=== PATIENT | male | born 1965 | race American Indian/Alaskan Native ===

== ENCOUNTER 2017-04-05 13:52 | Emergency (ER) | payer OTHER ==
[2017-04-05 13:53] VITALS: BMI 23.5
[2017-04-05 14:10] VITALS: BP 112/75; PULSE 79; RESP 16; TEMP 98.7; O2SAT 100
[2017-04-05] MEDS ORDERED: Oxycodone/Acetaminophen 5/325 mg Tab PO STA (14:22)
--- NOTE | 2017-04-05 14:26 | ED PDOC ---
Arrival/HPI - General Chief Complaint: Lower Extremity Problem/Injury Time Seen by Provider: 04/05/17 13:55 Historian: Patient - History of Present Illness Narrative History of Present Illness (Text): 04/05/17 14:25 51 y/o male, no significant pmh, nkda, c/o rt. calf pain x 2 months. Aching pain, aggravated by walking, no skin discoloration but admits rt. calf is skinnier recently, no numbness or tingling, no back pain, no dizziness, no other medical or psychological complaints. Past Medical History - Provider Review Nursing Documentation Reviewed: Yes - Past History Past History: No Previous - Infectious Disease Hx of Infectious Diseases: None - Tetanus Immunization Tetanus Immunization: Unknown - Past Medical History Past Medical History: No Previous - Cardiac Hx Cardiac Disorders: Yes Hx Hypertension: Yes - Pulmonary Hx Respiratory Disorders: Yes (SMOKES 1/2 PPD) - Endocrine/Metabolic Hx Endocrine Disorders: (borderline) - Musculoskeletal/Rheumatological Hx Musculoskeletal Disorders: Yes (CERVICAL RADICULOPATHY) Hx Falls: No - Psychiatric Hx Psychophysiologic Disorder: No Hx Substance Use: Yes (occassionally) - Past Surgical History Past Surgical History: No Previous - Anesthesia Hx Anesthesia: No Hx Anesthesia Reactions: No Hx Malignant Hyperthermia: No - Suicidal Assessment Feels Threatened In Home Enviroment: No Family/Social History - Physician Review Nursing Documentation Reviewed: Yes Family/Social History: Unknown Family HX Smoking Status: Heavy Smoker > 10 Cigarettes Daily Hx Alcohol Use: Yes Frequency of alcohol use: Socially Hx Substance Use: Yes (occassionally) Substance used: marijuana, cocaine (when younger) Hx Substance Use Treatment: No Allergies/Home Meds Allergies/Adverse Reactions: Allergies No Known Allergies Allergy (Verified 04/05/17 14:09) Review of Systems - Review of Systems Constitutional: absent: Fatigue, Fevers Eyes: absent: Vision Changes ENT: absent: Hearing Changes Respiratory: absent: SOB, Cough Cardiovascular: absent: Chest Pain Gastrointestinal: absent: Abdominal Pain, Nausea, Vomiting Musculoskeletal: Myalgias. absent: Arthralgias, Back Pain Skin: absent: Rash, Pruritis Physical Exam Vital Signs Temp Pulse Resp BP Pulse Ox 04/05/17 14:09 98.7 F 79 16 112/75 100 Temperature: Afebrile Blood Pressure: Normal Pulse: Regular Respiratory Rate: Normal Appearance: Positive for: Well-Appearing, Non-Toxic, Comfortable Pain Distress: None Mental Status: Positive for: Alert and Oriented X 3 - Systems Exam Head: Present: Atraumatic, Normocephalic Pupils: Present: PERRL, Sluggish Extroacular Muscles: Present: EOMI Conjunctiva: Present: Normal Mouth: Present: Moist Mucous Membranes Neck: Present: Normal Range of Motion Respiratory/Chest: Present: Clear to Auscultation, Good Air Exchange. No: Respiratory Distress, Accessory Muscle Use Cardiovascular: Present: Regular Rate and Rhythm, Normal S1, S2, Other (no pedal edema). No: Murmurs Abdomen: Present: Normal Bowel Sounds. No: Tenderness, Distention, Peritoneal Signs Back: Present: Normal Inspection. No: CVA Tenderness, Midline Tenderness, Paraspinal Tenderness, Pain with Leg Raise Upper Extremity: Present: Normal Inspection. No: Cyanosis, Edema Lower Extremity: Present: Normal Inspection, Other (Rt. lower extremity: +ttp on the middle to distal gastronemius and posterior achilles tendon region, + naomy and negative gorman signs, no skin discoloration, there is atrophy of the rt. calf compared to the left calf, +DPPT pulses, capillary refill< 2 seconds, no varicose vein, no cellulitis or streaking, no ulcers. ). No: Edema Neurological: Present: GCS=15, Speech Normal, Motor Func Grossly Intact, Gait Normal, Memory Normal Skin: Present: Warm, Dry, Normal Color. No: Rashes Psychiatric: Present: Alert, Oriented x 3, Normal Insight, Normal Concentration Medical Decision Making ED Course and Treatment: 04/05/17 14:29 -labs -RLE venuous doppler -Motrin and percocet 04/05/17 15:40 -I clinically concerning about the partial achilles tendon tear/rupture, will place the patient on the posterior splint. -RLE Venuous doppler: as preliminary report, no acute DVT -labs are non-significant -Posterior splint applied by me which he will need orthopedic follow up with MRI of the rt. lower extremity, pt. verbally expressed understanding. -Discharge home with naproxen, posterior splint, crutches, non-weight bearing, follow up with your own pmd and orthopedic for follow up plus MRI of the rt. lower extremity, return to the ER for any new or worsening signs or symptoms. - Lab Interpretations Lab Results: 04/05/17 14:25 04/05/17 14:25 Lab Results 04/05/17 14:25: Sodium 139, Potassium 3.8, Chloride 103, Carbon Dioxide 28, Anion Gap 12, BUN 11, Creatinine 1.0, Est GFR ( Amer) > 60, Est GFR (Non- Af Amer) > 60, Random Glucose 85, Calcium 9.1, Total Bilirubin 0.3, AST 27, ALT 31, Alkaline Phosphatase 90, Total Creatine Kinase 470 H, CK-MB (CK-2) 1.5, CK- MB (CK-2) % Cancelled, Total Protein 6.4, Albumin 4.0, Globulin 2.4, Albumin/ Globulin Ratio 1.7 04/05/17 14:25: WBC 4.6, RBC 5.36, Hgb 14.0, Hct 43.0, MCV 80.2, MCH 26.1, MCHC 32.6, RDW 15.1 H, Plt Count 213, MPV 9.8, Gran % 57.9, Lymph % (Auto) 33.2, [place] % (Auto) 7.2 H, Eos % (Auto) 1.5, Baso % (Auto) 0.2, Gran # 2.65, Lymph # 1.5, [place] # 0.3, Eos # 0.1, Baso # 0.01 I have reviewed the lab results: Yes Interpretation: No clinic. lab abnormalty - RAD Interpretation Radiology Orders: 04/05/17 14:22 DUPLEX LOWER EXTRM VEIN RIGHT [US] Stat RLE Venuous Doppler: as preliminary report, no acute DVT Hoop Maker Helper Machine: Radiologist - Medication Orders Current Medication Orders: Discontinued Medications Ibuprofen (Motrin Tab) 600 mg PO STAT STA Stop: 04/05/17 14:23 Last Admin: 04/05/17 14:31 Dose: 600 mg Oxycodone/Acetaminophen (Percocet 5/325 Mg Tab) 1 tab PO STAT STA Stop: 04/05/17 14:23 Last Admin: 04/05/17 14:31 Dose: 1 tab - PA / LOCAL FLATBED DRIVER / Resident Statement / has reviewed & agrees with the documentation as recorded. Disposition/Present on Arrival - Present on Arrival Any Indicators Present on Arrival: No History of DVT/PE: No History of Uncontrolled Diabetes: No Urinary Catheter: No History of Decub. Ulcer: No History Surgical Site Infection Following: None - Disposition Have Diagnosis and Disposition been Completed?: Yes Diagnosis: Atrophy of gastrocnemius muscle, Right calf pain Disposition: HOME/ ROUTINE Disposition Time: 15:42 Patient Plan: Discharge Condition: IMPROVED Additional Instructions: -Discharge home with naproxen, posterior splint, crutches, non-weight bearing, follow up with your own pmd and orthopedic for follow up plus MRI of the rt. lower extremity, return to the ER for any new or worsening signs or symptoms. Prescriptions: Naproxen 500 mg PO BID PRN #20 tab PRN Reason: Other Referrals: Katherine Villanueva MD [Staff Provider] - Follow up with primary Forms: [facility] (Nepali), WORK NOTE
[2017-04-05 14:52] LABS: MEAN CELL VOLUME 80.2 fl (80.0-105.0); MEAN CORPUSCULAR HEMOGLOBIN 26.1 pg (25.0-35.0); RBC 5.36 10^6/uL (3.5-6.1); WHITE BLOOD COUNT 4.6 10^3/ul (4.5-11.0)
[2017-04-05 14:53] LABS: BASO # 0.01 K/mm3 (0.0-2.0); BASO % 0.2 % (0.0-3.0); EOS # 0.1 (0.0-0.7); EOS % 1.5 % (1.5-5.0); GRAN # 2.65 (1.4-6.5); GRAN % 57.9 % (50.0-68.0); LYMPH # 1.5 (1.2-3.4); LYMPH % 33.2 % (22.0-35.0); MEAN CORPUSCULAR HGB CONC 32.6 g/dl (31.0-37.0); MEAN PLATELET VOLUME 9.8 fl (7.0-11.0); MONO # 0.3 (0.1-0.6); MONO % 7.2 % (1.0-6.0); PLATELET COUNT 213 10^3/uL (120.0-450.0); RED CELL DISTRIBUTION WIDTH 15.1 % (11.5-14.5)
[2017-04-05 14:58] LABS: ALB/GLOB RATIO 1.7 (1.1-1.8); ALT/SGPT 31 U/L (7-56); AST/SGOT 27 U/L (15-59); BLOOD UREA NITROGEN 11 mg/dL (7-21); CALCIUM 9.1 mg/dL (8.4-10.5); GFR AFRICAN-AMERICAN > 60; GFR NON-AFRICAN AMERICAN > 60
[2017-04-05 15:13] LABS: CK-MB 1.5 ng/mL (0.0-3.6)
--- NOTE | 2017-04-06 08:27 | US ---
PROCEDURE: Right lower extremity venous US HISTORY: Leg pain and swelling. Evaluate for DVT. PHYSICIAN(S): Ash Pena M.D. TECHNIQUE: Duplex sonography and color-flow Doppler with graded compression were used to evaluate the deep venous system of the right lower extremity. FINDINGS: The visualized deep venous system of the right lower extremity is sonographically normal and compressible. Normal waveforms and augmentation are seen. There is no sonographic evidence for deep venous thrombosis in the visualized segments of the right lower extremity. IMPRESSION: 1. No sonographic evidence for deep venous thrombosis in the visualized segments of the right lower extremity.
== END 2017-04-05 16:27 | disposition home or self-care (01) ==
LOC: ED 13:52
DX: M62.561 Muscle wasting and atrophy, not elsewhere classified, right lower leg (principal); M79.604 Pain in right leg; I10 Essential (primary) hypertension; F17.210 Nicotine dependence, cigarettes, uncomplicated

== ENCOUNTER 2018-02-03 22:18 | Observation (INO) | payer OTHER ==
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
[2018-02-03] MEDS ORDERED: TDAP Vaccine 0.5 mL Syr IM ONE (22:49)
[2018-02-03 23:16] LABS: HEMOGLOBIN 13.3 g/dL (14.0-18.0); MEAN CELL VOLUME 80.8 fl (80.0-105.0); MEAN CORPUSCULAR HEMOGLOBIN 26.3 pg (25.0-35.0); MEAN CORPUSCULAR HGB CONC 32.6 g/dl (31.0-37.0); MEAN PLATELET VOLUME 9.4 fl (7.0-11.0); RBC 5.05 10^6/uL (3.5-6.1); RED CELL DISTRIBUTION WIDTH 15.3 % (11.5-14.5); WHITE BLOOD COUNT 6.8 10^3/ul (4.5-11.0)
[2018-02-03 23:23] LABS: INR 1.01 (0.93-1.08); PARTIAL THROMBOPLASTIN TIME 28.7 Seconds (25.1-36.5); PROTHROMBIN TIME 11.5 SECONDS (9.4-12.5)
[2018-02-03 23:24] LABS: ALB/GLOB RATIO 1.5 (1.1-1.8); ALBUMIN 3.9 g/dL (3.0-4.8); ALT/SGPT 32 U/L (7-56); AST/SGOT 28 U/L (17-59); BLOOD UREA NITROGEN 13 mg/dL (7-21); CALCIUM 8.9 mg/dL (8.4-10.5); GFR AFRICAN-AMERICAN > 60; GFR NON-AFRICAN AMERICAN > 60
[2018-02-03 23:35] LABS: TROPONIN I < 0.01 ng/mL
[2018-02-03 23:40] LABS: CK-MB 1.6 ng/mL (0.0-3.6)
--- NOTE | 2018-02-04 00:07 | CT ---
EXAM: CT Head Without Intravenous Contrast EXAM DATE/TIME: 02/03/2018 10:43 PM CLINICAL HISTORY: The patient age is 52 years old and is male; Injury or trauma; Fall; Initial encounter; Blunt trauma (contusions or hematomas); Consciousness not specified; Injury details: Pt fainted and injured head; Additional info: Syncope Facility exam id and description: Ct heads head w/o contrast TECHNIQUE: Axial computed tomography images of the head/brain without intravenous contrast. All CT scans at this facility use one or more dose reduction techniques, viz.: automated exposure control; ma/kV adjustment per patient size (including targeted exams where dose is matched to indication; i.e. head); or iterative reconstruction technique. Coronal and sagittal reformatted images were created and reviewed. COMPARISON: No relevant prior studies available. FINDINGS: Brain: The white-frazier differentiation is preserved demonstrating no acute territorial type infarct. No acute intracranial hemorrhage is seen. No significant white matter disease is visualized. Midline shift: There is no midline shift. Ventricles: No ventriculomegaly. Bones/joints: The calvarium demonstrates no evidence for a depressed fracture. Soft tissues: There is mild soft tissue swelling/laceration of the left frontal scalp. Sinuses: Unremarkable as visualized. No acute sinusitis. Mastoid air cells: No mastoid effusion. IMPRESSION: 1. There is mild soft tissue swelling/laceration of the left frontal scalp. 2. No acute intracranial abnormality.
[2018-02-04 03:33] VITALS: BMI 22.7
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
[2018-02-04 06:03] LABS: BASO # 0.04 K/mm3 (0.0-2.0); BASO % 0.5 % (0.0-3.0); EOS # 0.1 (0.0-0.7); EOS % 1.2 % (1.5-5.0); GRAN # 4.47 (1.4-6.5); GRAN % 59.8 % (50.0-68.0); HEMOGLOBIN 12.7 g/dL (14.0-18.0); LYMPH # 2.5 (1.2-3.4); LYMPH % 32.8 % (22.0-35.0); MEAN CELL VOLUME 80.4 fl (80.0-105.0); MEAN CORPUSCULAR HEMOGLOBIN 26.2 pg (25.0-35.0); MEAN CORPUSCULAR HGB CONC 32.6 g/dl (31.0-37.0); MEAN PLATELET VOLUME 9.5 fl (7.0-11.0); MONO # 0.4 (0.1-0.6); MONO % 5.7 % (1.0-6.0); RBC 4.85 10^6/uL (3.5-6.1); RED CELL DISTRIBUTION WIDTH 15.3 % (11.5-14.5); WHITE BLOOD COUNT 7.5 10^3/ul (4.5-11.0)
[2018-02-04 06:33] LABS: LDL CHOLESTEROL 111 mg/dL (0-129); TROPONIN I < 0.01 ng/mL
[2018-02-04 06:39] LABS: ALB/GLOB RATIO 1.3 (1.1-1.8); ALBUMIN 3.5 g/dL (3.0-4.8); ALT/SGPT 30 U/L (7-56); AST/SGOT 22 U/L (17-59); BLOOD UREA NITROGEN 11 mg/dL (7-21); CALCIUM 8.8 mg/dL (8.4-10.5); GFR AFRICAN-AMERICAN > 60; GFR NON-AFRICAN AMERICAN > 60; HDL CHOLESTEROL 35 mg/dL (29-60)
[2018-02-04] MEDS ORDERED: NAPROXEN 500 MG PO PRN (07:02)
[2018-02-04 07:52] LABS: CK-MB 2.1 ng/mL (0.0-3.6)
--- NOTE | 2018-02-04 08:44 | RAD ---
PROCEDURE: CHEST RADIOGRAPH, 1 VIEW HISTORY: syncope COMPARISON: 09/13/2016 FINDINGS: LUNGS: Clear. PLEURA: No pneumothorax or pleural fluid seen. CARDIOVASCULAR: Normal. OSSEOUS STRUCTURES: No significant abnormalities. VISUALIZED UPPER ABDOMEN: Normal. OTHER FINDINGS: None. IMPRESSION: No active disease.
--- NOTE | 2018-02-04 08:47 | RAD ---
PROCEDURE: Radiographs of the Left Shoulder HISTORY: injury COMPARISON: No prior. FINDINGS: BONES: Normal. No fracture. JOINTS: Normal. Glenohumeral and acromioclavicular joints preserved. No osteoarthritis. SOFT TISSUES: Normal. OTHER FINDINGS: None. IMPRESSION: Normal radiographs of the left shoulder.
--- NOTE | 2018-02-04 08:48 | RAD ---
PROCEDURE: Radiographs of the pelvis and bilateral hips HISTORY: injury COMPARISON: None. FINDINGS: BONES: Pelvis: Unremarkable. Right hip:Unremarkable. Left hip:Unremarkable. JOINTS: Right hip: Unremarkable. Left hip: Unremarkable. Sacroiliac Joints: Unremarkable. Pubic symphysis: Unremarkable. SOFT TISSUES: Normal. OTHER FINDINGS: None. IMPRESSION: Unremarkable radiographs of the hips and pelvis.
[2018-02-04] MEDS ORDERED: Potassium Chloride 20 mEq ER Tab PO ONE (09:19)
[2018-02-04] MEDS ORDERED: Naproxen 550 mg Tab PO SCH (10:00)
[2018-02-04 10:16] LABS: BARBITURATES, UR NEGATIVE (NEGATIVE)
[2018-02-04 10:18] LABS: BENZODIAZEPINES, UR NEGATIVE (NEGATIVE); OPIATES, UR NEGATIVE (NEGATIVE); PHENCYCLIDINE, UR NEGATIVE (NEGATIVE)
--- NOTE | 2018-02-04 13:30 | CP.PCM.CON ---
History of Present Illness - History of Present Illness History of Present Illness: Mr. Kelley is a 52-year-old man with no significant past medical history, who was admitted for work-up and management after he was found confused, disoriented and lost consciousness on the street. According to the patient, he had left work, and went home. He smoked a "joint" and sniffed some cocaine that he had left over, then he went to take the bus and pickle processor his . On the bus, he started to have increase perspiration, racing heart, and had stiffening and shaking of his right leg. He then stood up and felt like his environment was spinning, he had blurry vision, became light-headed and lost consciousness. He hit the left side of his head and body. When he woke up, he was confused and did not recall hitting his head or falling. He continues to feel that his right leg is numb and does not feel normal. CT scan of the head did not show any intracranial abnormalities. Review of Systems - Review of Systems All systems: reviewed and no additional remarkable complaints except Past Patient History - Infectious Disease Hx of Infectious Diseases: None - Tetanus Immunizations Tetanus Immunization: Unknown - Past Social History Smoking Status: Heavy Smoker > 10 Cigarettes Daily - CARDIAC Hx Cardiac Disorders: Yes Hx Hypertension: Yes - PULMONARY Hx Respiratory Disorders: Yes (SMOKES 1/2 PPD) - NEUROLOGICAL Hx Dizziness: Yes - HEENT Hx HEENT Problems: No - RENAL Hx Chronic Kidney Disease: No - ENDOCRINE/METABOLIC Hx Endocrine Disorders: (borderline) - HEMATOLOGICAL/ONCOLOGICAL Hx Blood Disorders: No - INTEGUMENTARY Hx Dermatological Problems: No - MUSCULOSKELETAL/RHEUMATOLOGICAL Hx Musculoskeletal Disorders: Yes (CERVICAL RADICULOPATHY) Hx Falls: No - GENITOURINARY/GYNECOLOGICAL Hx Genitourinary Disorders: No - PSYCHIATRIC Hx Psychophysiologic Disorder: No Hx Substance Use: Yes (occassionally) - SURGICAL HISTORY Hx Surgeries: No - ANESTHESIA Hx Anesthesia: No Hx Anesthesia Reactions: No Hx Malignant Hyperthermia: No Meds Allergies/Adverse Reactions: Allergies Allergy/AdvReac Type Severity Reaction Status Date / Time No Known Allergies Allergy Verified 02/03/18 22:27 - Medications Medications: Current Medications Acetaminophen (Tylenol 325mg Tab) 650 mg PO Q6H PRN PRN Reason: HEADACHE AND FEVER Famotidine (Pepcid) 40 mg PO HS SIVAN Gabapentin (Neurontin) 400 mg PO TID SIVAN PRN Reason: Protocol Heparin Sodium (Porcine) (Heparin) 5,000 units SC Q8 SIVAN PRN Reason: Protocol Last Admin: 02/04/18 05:54 Dose: 5,000 units Ketorolac Tromethamine (Toradol) 15 mg IVP Q6 PRN PRN Reason: Pain, moderate (4-7) Ondansetron HCl (Zofran Inj) 4 mg IVP Q4H PRN PRN Reason: Nausea/Vomiting Physical Exam - Neurological Exam Neurological exam: Alert, CN II-XII Intact, Normal Gait, Oriented x3, Reflexes Normal Additional comments: Decreased sensation of right leg as compared to the left leg. Otherwise, no focal neurological deficits. Results - Vital Signs Recent Vital Signs: Last Vital Signs Temp 97.8 F 02/04/18 11:50 Pulse 61 02/04/18 11:50 Resp 18 02/04/18 11:50 BP 123/84 02/04/18 11:50 Pulse Ox 100 02/04/18 06:00 - Labs Result Diagrams: 02/04/18 05:17 02/04/18 05:30 Labs: Laboratory Results - last 24 hr 02/04/18 02/04/18 02/04/18 05:17 05:30 06:30 WBC 7.5 RBC 4.85 Hgb 12.7 L Hct 39.0 L MCV 80.4 MCH 26.2 MCHC 32.6 RDW 15.3 H Plt Count 220 MPV 9.5 Gran % 59.8 Lymph % (Auto) 32.8 [place] % (Auto) 5.7 Eos % (Auto) 1.2 L Baso % (Auto) 0.5 Gran # 4.47 Lymph # (Auto) 2.5 [place] # (Auto) 0.4 Eos # (Auto) 0.1 Baso # (Auto) 0.04 Sodium 143 Potassium 3.7 Chloride 106 Carbon Dioxide 27 Anion Gap 13 BUN 11 Creatinine 0.8 Est GFR ( Amer) > 60 Est GFR (Non-Af Amer) > 60 Random Glucose 123 H Calcium 8.8 Phosphorus 3.8 Magnesium 2.1 Total Bilirubin 0.2 AST 22 ALT 30 Alkaline Phosphatase 86 Lactate Dehydrogenase 427 Total Creatine Kinase 296 H CK-MB (CK-2) 2.1 CK-MB (CK-2) % Cancelled Troponin I < 0.01 Total Protein 6.3 Albumin 3.5 Globulin 2.7 Albumin/Globulin Ratio 1.3 Triglycerides 133 Cholesterol 175 LDL Cholesterol Direct 111 HDL Cholesterol 35 TSH 3rd Generation 0.92 Urine Opiates Screen Urine Methadone Screen Ur Barbiturates Screen Ur Phencyclidine Scrn Ur Amphetamines Screen U Benzodiazepines Scrn U Oth Cocaine Metabols U Cannabinoids Screen Alcohol, Quantitative 02/04/18 02/04/18 06:30 09:44 WBC RBC Hgb Hct MCV MCH MCHC RDW Plt Count MPV Gran % Lymph % (Auto) [place] % (Auto) Eos % (Auto) Baso % (Auto) Gran # Lymph # (Auto) [place] # (Auto) Eos # (Auto) Baso # (Auto) Sodium Potassium Chloride Carbon Dioxide Anion Gap BUN Creatinine Est GFR ( Amer) Est GFR (Non-Af Amer) Random Glucose Calcium Phosphorus Magnesium Total Bilirubin AST ALT Alkaline Phosphatase Lactate Dehydrogenase Total Creatine Kinase CK-MB (CK-2) CK-MB (CK-2) % Troponin I Total Protein Albumin Globulin Albumin/Globulin Ratio Triglycerides Cholesterol LDL Cholesterol Direct HDL Cholesterol TSH 3rd Generation Urine Opiates Screen Negative Urine Methadone Screen Negative Ur Barbiturates Screen Negative Ur Phencyclidine Scrn Negative Ur Amphetamines Screen Negative U Benzodiazepines Scrn Negative U Oth Cocaine Metabols Positive H U Cannabinoids Screen Positive H Alcohol, Quantitative < 10 Assessment & Plan (1) Seizure Assessment and Plan: Based on the description of right leg stiffening, shaking, loss of consciousness and subsequent confusion/disorientation after cocaine and marijuana use, the patient may have had a drug-induced seizure. However, syncope is also in the differential. I recommend further work-up with an MRI of the brain without contrast and an EEG for further evaluation. This is a first time seizure and does not require treatment unless there are abnormalities on the testing that is recommended. Thank you. Status: Acute Priority: High
--- NOTE | 2018-02-04 13:32 | CARD ---
APPROVED REPORT EKG Measurement Heart [id number] <Conclusion> Sinus bradycardia with 1st degree AV block Otherwise normal ECG
[2018-02-04 13:39] LABS: TROPONIN I < 0.01 ng/mL
[2018-02-04 13:43] LABS: CK-MB 1.7 ng/mL (0.0-3.6)
--- NOTE | 2018-02-04 15:05 | CARD ---
APPROVED REPORT EXAM: Two-dimensional and M-mode echocardiogram with Doppler and color Doppler. INDICATION Syncope 2D DIMENSIONS Left Atrium (2D)3.3 (1.6-4.0cm)IVSd1.1 (0.7-1.1cm) LVDd4.5 (3.9-5.9cm)PWd1.0 (0.7-1.1cm) LVDs2.9 (2.5-4.0cm)FS (%) 36.2 % LVEF (%)66.0 (>50%) M-Mode DIMENSIONS Aortic Root2.80 (2.2-3.7cm)Aortic Cusp Exc.2.10 (1.5-2.0cm) Aortic Valve AoV Peak Wvujdmif932.0cm/Ilir Peak GR.6mmHg Mitral Valve MV E Bmnmilvj39.8cm/sMV A Tewyrmtn05.1cm/sE/A ratio1.1 TDI E/Lateral E'0.0E/Medial E'0.0 Tricuspid Valve TR Peak Drbtmqla427cs/sRAP [id number] Peak Gr.14mmHg [id number] LEFT VENTRICLE The left ventricle is normal size. There is normal left ventricular wall thickness. The left ventricular function is normal. The left ventricular ejection fraction is within the normal range. There is normal LV segmental wall motion. The left ventricular diastolic function is normal. RIGHT VENTRICLE The right ventricle is normal size. There is normal right ventricular wall thickness. The right ventricular systolic function is normal. ATRIA The left atrium is borderline dilated. The right atrium size is normal. AORTIC VALVE The aortic valve is normal in structure. No aortic regurgitation is present. MITRAL VALVE The mitral valve is normal in structure. There is no mitral valve regurgitation noted. There is no mitral valve stenosis. TRICUSPID VALVE The tricuspid valve is normal in structure. There is trace tricuspid regurgitation. PULMONIC VALVE The pulmonary valve is normal in structure. There is no pulmonic valvular regurgitation. GREAT VESSELS The aortic root is normal in size. The IVC is normal in size and collapses >50% with inspiration. PERICARDIAL EFFUSION There is no pericardial effusion. <Conclusion> The left ventricle is normal size. There is normal left ventricular wall thickness. The left ventricular function is normal. The left ventricular ejection fraction is within the normal range. There is normal LV segmental wall motion. The left ventricular diastolic function is normal.
--- NOTE | 2018-02-04 18:23 | US ---
PROCEDURE: Bilateral carotid artery duplex ultrasound HISTORY: Carotid stenosis syncope PHYSICIAN(S): Ash Pena MD. TECHNIQUE: Duplex sonography and color-flow Doppler were used to evaluate the carotid bifurcations and limited segments of the vertebral arteries bilaterally. FINDINGS: There is mild smooth heterogeneous plaque noted at the carotid bifurcations bilaterally. The peak systolic velocity in the proximal right internal carotid artery is 76 cm/sec. This corresponds to a 20 to 39% proximal right ICA stenosis. Normal systolic velocities are noted in the proximal right external carotid artery. There is antegrade flow in the right vertebral artery. The peak systolic velocity in the proximal left internal carotid artery is 72 cm/sec. This corresponds to a 20 to 39% proximal left ICA stenosis. Normal systolic velocities are noted in the proximal left external carotid artery. There is antegrade flow in the left vertebral artery. IMPRESSION: 1. Bilateral 20-39% proximal ICA stenoses. 2. Antegrade flow in both vertebral arteries.
--- NOTE | 2018-02-04 20:57 | CON ---
DATE: 02/04/2018 CARDIOLOGY CONSULTATION REASON FOR DICTATION: Covering Dr. Ash Harris. REASON FOR CONSULTATION: Syncope, recurrent; history of substance abuse. BRIEF CLINICAL HISTORY: This is a 52-year-old male with a past medical history significant for herniated disk in the neck, back and multiple syncope almost every month, couple of times, [place] [employer]. The patient was looked like blacked out and passed out, has no recollection. Ambulance was called and the patient was tried to take to the [facility], but the patient refused and came to the [facility]. The patient said that initially he felt light headed, dizzy, and then felt blackout. This is happening over a period of 2 years almost every month, more so when the patient smokes weed or smokes cigarette. Denies any episode without smoking, most of it happens while the patient smokes. PAST MEDICAL HISTORY: Significant of syncope and history of herniated disk. SOCIAL HISTORY: Actively smokes. Denies any history of significant alcohol abuse, smokes weed also and marijuana. FAMILY HISTORY: Father has stroke, diabetes, and lung cancer. CURRENT MEDICATION: The patient is taking gabapentin and pain medication. REVIEW OF SYSTEMS: As per HPI. No previous cardiac workup. PHYSICAL EXAMINATION: VITAL SIGNS: Temperature afebrile. Heart rate 66, blood pressure 122/86. HEENT: PERRLA. Extraocular muscles intact. NECK: Supple. No carotid bruit. No thyromegaly. CHEST: Clear to auscultation. HEART: S1 and S2 regular. ABDOMEN: Soft. EXTREMITIES: Clubbing and cyanosis negative. LABORATORY DATA: Blood workup as follows: WBC , hemoglobin 12.3, hematocrit 39, platelet count 220. Chemistry shows sodium 140, potassium 3, chloride 106, carbon dioxide 27, anion gap of 13, BUN 11, creatinine 0.8. Troponin 0.01, negative. EKG showed normal sinus, no acute ST-T changes noted. IMPRESSION: Recurrent syncope, most likely related to the substance abuse, but needs to rule out arrhythmia, needs to rule out structural heart disease, also needs to ruled out any significant orthostatic hypotension. RECOMMENDATION: We will get echo to assess LV function and rule out any structural heart disease, orthostatic hypotension. We will send the urine for lipid profile, TSH, and hemoglobin A1c. Continue monitoring in telemetry to rule out any arrhythmia. We will transfer care tomorrow to Dr. Ash Harris. Thank you, Dr. Santizo, for providing us the opportunity in taking care of the patient, Regis Kelley. We will follow with you and transfer care tomorrow to Dr. Ash Harris. EKG shows sinus frank, first degree AV block, otherwise no acute ST-T changes noted. Vinny Moore MD
--- NOTE | 2018-02-04 22:36 | CARD ---
APPROVED REPORT EKG Measurement Heart [id number] <Conclusion> Sinus rhythm with 1st degree AV block Otherwise normal ECG
--- NOTE | 2018-02-04 23:47 | CARD ---
APPROVED REPORT EKG Measurement Heart [id number] <Conclusion> Sinus rhythm with 1st degree AV block Otherwise normal ECG
[2018-02-05 06:04] VITALS: TEMP 98.6; O2SAT 98
[2018-02-05 06:25] LABS: BASO # 0.04 K/mm3 (0.0-2.0); BASO % 1.1 % (0.0-3.0); EOS # 0.1 (0.0-0.7); GRAN # 1.39 (1.4-6.5); GRAN % 37.9 % (50.0-68.0); HEMOGLOBIN 13.4 g/dL (14.0-18.0); LYMPH # 1.9 (1.2-3.4); LYMPH % 52.3 % (22.0-35.0); MEAN CELL VOLUME 80.8 fl (80.0-105.0); MEAN CORPUSCULAR HEMOGLOBIN 26.3 pg (25.0-35.0); MEAN CORPUSCULAR HGB CONC 32.5 g/dl (31.0-37.0); MEAN PLATELET VOLUME 10.1 fl (7.0-11.0); MONO # 0.2 (0.1-0.6); MONO % 5.7 % (1.0-6.0); RBC 5.1 10^6/uL (3.5-6.1); RED CELL DISTRIBUTION WIDTH 15.4 % (11.5-14.5); WHITE BLOOD COUNT 3.7 10^3/ul (4.5-11.0)
[2018-02-05 06:53] LABS: ALB/GLOB RATIO 1.2 (1.1-1.8); ALBUMIN 3.5 g/dL (3.0-4.8); ALT/SGPT 25 U/L (7-56); AST/SGOT 17 U/L (17-59); BLOOD UREA NITROGEN 8 mg/dL (7-21); CALCIUM 8.7 mg/dL (8.4-10.5); GFR AFRICAN-AMERICAN > 60; GFR NON-AFRICAN AMERICAN > 60
--- NOTE | 2018-02-05 10:29 | MRI ---
PROCEDURE: MRI BRAIN WITHOUT CONTRAST HISTORY: syncope,seizure COMPARISON: None. TECHNIQUE: Multiplanar, multisequence MR images of the brain were obtained without intravenous contrast enhancement. FINDINGS: HEMORRHAGE: None DWI: No evidence of an acute or early subacute infarction. BRAIN PARENCHYMA: There is a small focus of increased signal intensity in the cortex of the left anterior inferior frontal lobe. This is of doubtful clinical significance. This is seen on image 13 series 5. No atrophy or chronic microvascular ischemic changes. VENTRICLES: Unremarkable. No hydrocephalus. CRANIUM: Unremarkable. ORBITS: Grossly unremarkable. PARANASAL SINUSES/MASTOIDS: Clear VASCULAR SYSTEM: Skull base flow voids intact. OTHER FINDINGS: The report concurs with the preliminary [facility] report IMPRESSION: No acute intracranial findings
--- NOTE | 2018-02-05 10:31 | PN ---
DATE: 02/05/2018 CARDIOLOGY FOLLOWUP SUBJECTIVE: The patient is awake, alert. No symptoms. No complaints. PHYSICAL EXAMINATION: VITAL SIGNS: Stable. NECK: Negative JVD. LUNGS: Without rales. HEART: Reveal S1, S2. EXTREMITIES: Without edema. DATA: His echocardiogram shows good LV function with no LV outflow obstruction. Carotid ultrasound reveals no carotid obstruction. His troponins are negative and performance instructor revealed no arrhythmias. IMPRESSION: 1. Syncope. 2. Drug abuse. 3. Chronic obstructive pulmonary disease. 4. Hypertension. Discussed with the patient and reviewed his cardiac findings. I have discussed this with the patient and his need to refrain from his drug abuse. We will discontinue Telemetry today. No further cardiac workup is indicated. Ash Harris MD
--- NOTE | 2018-02-05 11:07 | CP.PCM.DIS ---
Provider - Provider Date of Admission: 02/04/18 01:18 Attending physician: Gianna Santizo MD Primary care physician: Jaelyn Hernandez MD Time Spent in preparation of Discharge (in minutes): 60 Hospital Course - Lab Results Lab Results: Most Recent Lab Values WBC 3.7 10^3/ul (4.5-11.0) L D 02/05/18 05:20 RBC 5.10 10^6/uL (3.5-6.1) 02/05/18 05:20 Hgb 13.4 g/dL (14.0-18.0) L 02/05/18 05:20 Hct 41.2 % (42.0-52.0) L 02/05/18 05:20 MCV 80.8 fl (80.0-105.0) 02/05/18 05:20 MCH 26.3 pg (25.0-35.0) 02/05/18 05:20 MCHC 32.5 g/dl (31.0-37.0) 02/05/18 05:20 RDW 15.4 % (11.5-14.5) H 02/05/18 05:20 Plt Count 230 10^3/uL (120.0-450.0) 02/05/18 05:20 MPV 10.1 fl (7.0-11.0) 02/05/18 05:20 Gran % 37.9 % (50.0-68.0) L 02/05/18 05:20 Lymph % (Auto) 52.3 % (22.0-35.0) H 02/05/18 05:20 [place] % (Auto) 5.7 % (1.0-6.0) 02/05/18 05:20 Eos % (Auto) 3.0 % (1.5-5.0) 02/05/18 05:20 Baso % (Auto) 1.1 % (0.0-3.0) 02/05/18 05:20 Gran # 1.39 (1.4-6.5) L 02/05/18 05:20 Lymph # (Auto) 1.9 (1.2-3.4) 02/05/18 05:20 [place] # (Auto) 0.2 (0.1-0.6) 02/05/18 05:20 Eos # (Auto) 0.1 (0.0-0.7) 02/05/18 05:20 Baso # (Auto) 0.04 K/mm3 (0.0-2.0) 02/05/18 05:20 PT 11.5 SECONDS (9.4-12.5) 02/03/18 23:00 INR 1.01 (0.93-1.08) 02/03/18 23:00 APTT 28.7 Seconds (25.1-36.5) 02/03/18 23:00 Sodium 142 mmol/L (132-148) 02/05/18 05:20 Potassium 4.3 mmol/L (3.6-5.0) 02/05/18 05:20 Chloride 109 mmol/L (98-107) H 02/05/18 05:20 Carbon Dioxide 24 mmol/L (21-33) 02/05/18 05:20 Anion Gap 14 (10-20) 02/05/18 05:20 BUN 8 mg/dL (7-21) 02/05/18 05:20 Creatinine 0.8 mg/dl (0.8-1.5) 02/05/18 05:20 Est GFR ( Amer) > 60 02/05/18 05:20 Est GFR (Non-Af Amer) > 60 02/05/18 05:20 Random Glucose 98 mg/dL (70-110) 02/05/18 05:20 Hemoglobin A1c 5.8 % (4.2-6.5) 02/04/18 06:30 Calcium 8.7 mg/dL (8.4-10.5) 02/05/18 05:20 Phosphorus 3.3 mg/dL (2.5-4.5) 02/05/18 05:20 Magnesium 2.1 mg/dL (1.7-2.2) 02/05/18 05:20 Total Bilirubin 0.2 mg/dL (0.2-1.3) 02/05/18 05:20 AST 17 U/L (17-59) D 02/05/18 05:20 ALT 25 U/L (7-56) 02/05/18 05:20 Alkaline Phosphatase 76 U/L (38-126) 02/05/18 05:20 Lactate Dehydrogenase 451 U/L (333-699) 02/04/18 12:30 Total Creatine Kinase 296 U/L (35-230) H 02/04/18 12:30 CK-MB (CK-2) 1.7 ng/mL (0.0-3.6) 02/04/18 12:30 CK-MB (CK-2) % Cancelled 02/04/18 05:30 Troponin I < 0.01 ng/mL 02/04/18 12:30 Total Protein 6.3 g/dL (5.8-8.3) 02/05/18 05:20 Albumin 3.5 g/dL (3.0-4.8) 02/05/18 05:20 Globulin 2.9 gm/dL 02/05/18 05:20 Albumin/Globulin Ratio 1.2 (1.1-1.8) 02/05/18 05:20 Triglycerides 133 mg/dL (35-160) 02/04/18 05:30 Cholesterol 175 mg/dL (130-200) 02/04/18 05:30 LDL Cholesterol Direct 111 mg/dL (0-129) 02/04/18 05:30 HDL Cholesterol 35 mg/dL (29-60) 02/04/18 05:30 TSH 3rd Generation 0.92 mIU/mL (0.46-4.68) 02/04/18 06:30 Urine Opiates Screen Negative (NEGATIVE) 02/04/18 09:44 Urine Methadone Screen Negative (NEGATIVE) 02/04/18 09:44 Ur Barbiturates Screen Negative (NEGATIVE) 02/04/18 09:44 Ur Phencyclidine Scrn Negative (NEGATIVE) 02/04/18 09:44 Ur Amphetamines Screen Negative (NEGATIVE) 02/04/18 09:44 U Benzodiazepines Scrn Negative (NEGATIVE) 02/04/18 09:44 U Oth Cocaine Metabols Positive (NEGATIVE) H 02/04/18 09:44 U Cannabinoids Screen Positive (NEGATIVE) H 02/04/18 09:44 Alcohol, Quantitative < 10 mg/dL (0-10) 02/04/18 06:30 Discharge Exam - Head Exam Head Exam: NORMOCEPHALIC Discharge Plan - Discharge Medications Prescriptions: Acetaminophen [Tylenol 325mg tab] 650 mg PO Q6H PRN 14 Days tab PRN Reason: HEADACHE AND FEVER - Follow Up Plan Condition: STABLE Disposition: HOME/ ROUTINE Instructions: Cocaine Use Disorder, Laceration Repair With Stitches (DC), Syncope (Fainting) (DC), Marijuana Use and Addiction Additional Instructions: - Please avoid drugs. - Follow up with PMD Dr Hernandez in 1 week. - Return to ER for any concerns. Referrals: Jaelyn Hernandez MD [Primary Care Provider] -
[2018-02-05 11:27] VITALS: BP 121/89; PULSE 59; RESP 18
--- NOTE | 2018-02-05 11:53 | CP.PCM.PN ---
Subjective - Date & Time of Evaluation Date of Evaluation: 02/05/18 Time of Evaluation: 11:49 - Subjective Subjective: Mr. Kelley was seen and examined at the bedside. He is alert, oriented in all spheres. He claims of very minimal left parietal headache, but denies any dizziness, lightheadedness. He is able to ambulate within his room in steady gait.MRI of the brain is normal. There was no untoward events overnight. Objective - Vital Signs/Intake and Output Vital Signs (last 24 hours): Temp Pulse Resp BP Pulse Ox 98.6 F 59 L 18 121/89 98 02/05/18 11:27 02/05/18 11:27 02/05/18 11:27 02/05/18 11:27 02/05/18 06:00 Intake and Output: 02/05/18 02/05/18 06:59 18:59 Intake Total 360 Output Total 700 Balance -340 - Medications Medications: Current Medications Acetaminophen (Tylenol 325mg Tab) 650 mg PO Q6H PRN PRN Reason: HEADACHE AND FEVER Last Admin: 02/05/18 08:15 Dose: 650 mg Famotidine (Pepcid) 40 mg PO HS SIVAN Last Admin: 02/04/18 21:04 Dose: 40 mg Gabapentin (Neurontin) 400 mg PO TID SIVAN PRN Reason: Protocol Last Admin: 02/05/18 09:58 Dose: 400 mg Heparin Sodium (Porcine) (Heparin) 5,000 units SC Q8 SIVAN PRN Reason: Protocol Last Admin: 02/04/18 14:01 Dose: Not Given Ketorolac Tromethamine (Toradol) 15 mg IVP Q6 PRN PRN Reason: Pain, moderate (4-7) Ondansetron HCl (Zofran Inj) 4 mg IVP Q4H PRN PRN Reason: Nausea/Vomiting - Labs Labs: 02/05/18 05:20 02/05/18 05:20 PT 11.5 SECONDS (9.4-12.5) 02/03/18 23:00 INR 1.01 (0.93-1.08) 02/03/18 23:00 APTT 28.7 Seconds (25.1-36.5) 02/03/18 23:00 - Constitutional Appears: No Acute Distress - Head Exam Head Exam: NORMAL INSPECTION - Eye Exam Eye Exam: EOMI Pupil Exam: PERRL - ENT Exam ENT Exam: Mucous Membranes Moist - Neurological Exam Neurological Exam: Alert, Awake, CN II-XII Intact, Normal Gait, Oriented x3 Neuro motor strength exam: Left Upper Extremity: 5, Right Upper Extremity: 5, Left Lower Extremity: 5, Right Lower Extremity: 5 Additional comments: alert, oriented with no neuro deficits. Assessment and Plan (1) Seizure Assessment & Plan: Case discussed with Dr. Don, continue all current medical regimen, May discharge patient to home pending primary evaluation, EEG can be done as an outpatient, follow up with Dr. Don [facility] [address] [facility] [address], tel [phone]. Status: Acute
== END 2018-02-05 14:36 | disposition home or self-care (01) ==
LOC: ED 22:18 → ERH 02-04 01:18 → 2RNO 02-04 02:08
PROVIDERS: ADMIT Internal Medicine; ATTEND Internal Medicine
DX: R55 Syncope and collapse (principal); S01.01XA Laceration without foreign body of scalp, initial encounter; I10 Essential (primary) hypertension; F17.210 Nicotine dependence, cigarettes, uncomplicated; F14.10 Cocaine abuse, uncomplicated; F12.10 Cannabis abuse, uncomplicated; R56.9 Unspecified convulsions; J44.9 Chronic obstructive pulmonary disease, unspecified; M54.12 Radiculopathy, cervical region; I44.0 Atrioventricular block, first degree; D64.9 Anemia, unspecified; X58.XXXA Exposure to other specified factors, initial encounter; Y92.410 Unspecified street and highway as the place of occurrence of the external cause; Z80.1 Family history of malignant neoplasm of trachea, bronchus and lung; Z83.3 Family history of diabetes mellitus; Z82.3 Family history of stroke
CPT/HCPCS: 36415; 70450; 70551; 71045; 73030; 73521; 80053; 80061; 80320; 80324; 80345; 80346; 80349; 80353; 80358; 80361; 82550; 82553; 83036; 83615; 83735; 83992; 84100; 84443; 84484; 85025; 85027; 85610; 85730; 90471; 90715; 93005; 93306; 93880; 95812; 97116; 97161; 99285; G0378; G8978; G8979; G8980; J1644